=== PATIENT | male | born 1985 | race Caucasian/White ===

== ENCOUNTER 2018-04-17 05:32 | Inpatient (IN) | payer MEDICAID, OTHER ==
[~2018-04-17] VITALS: Ht 167.6 cm; Wt 74.8 kg
[2018-04-17] MEDS ORDERED: ASPIRIN 81MG TABLET PO ONE (06:45)
[2018-04-17 08:13] LABS: BASOPHILS % 0.3 % (0.0-2.0); EOSINOPHILS % 4.7 % (0.0-5.0); LYMPHOCYTES % 10.3 % (20.0-50.0); MEAN CORPUSCULAR HEMOGLOBIN 31.4 pg (28.0-32.0); MEAN CORPUSCULAR VOLUME 95.7 fL (80.0-94.0); MEAN PLATELET VOLUME 8.2 fl (7.4-10.4); MONOCYTES % 6.2 % (2.0-8.0); NEUTROPHILS % 78.5 % (40.0-76.0); PLATELET 190 x1000/uL (130-400); RED BLOOD CELL COUNT 1.94 mill/uL (4.7-6.1); RED CELL DISTRIBUTION WIDTH 15.7 % (11.6-14.6)
[2018-04-17] MEDS ORDERED: CALCIUM GLUCONATE 100MG/ML 10ML VIAL IV ONE (08:15)
[2018-04-17 08:21] LABS: HEMOGLOBIN. 6.1 g/dL (14.0-18.0)
[2018-04-17 08:22] LABS: HEMATOCRIT. 18.5 % (42.0-52.0)
[2018-04-17 08:27] LABS: CHLORIDE 99 mEq/L (98-107)
[2018-04-17] MEDS ORDERED: INSULIN REGULAR (HUMULIN R) 300UNITS/3ML IV ONE (08:30)
[2018-04-17] MEDS ORDERED: CALCIUM GLUCONATE 1000MG in DEXTROSE 5% WATER 50ML IV ONE (08:30)
[2018-04-17] MEDS ORDERED: DEXTROSE 50% WATER 50ML SYRINGE IV ONE (08:30)
[2018-04-17] MEDS ORDERED: SODIUM BICARBONATE 8.4% 1 MEQ/ML 50ML SYR IV ONE (08:30)
[2018-04-17] MEDS ORDERED: SODIUM POLYSTYRENE SULFONATE 15 G/60 ML BOT PO NR (10:15)
[2018-04-17] MEDS ORDERED: ONDANSETRON HCL 4MG/2ML INJ IV PRN (10:15)
[2018-04-17] MEDS ORDERED: ACETAMINOPHEN 325MG TABLET PO PRN (10:15)
[2018-04-17 11:34] LABS: HEPATITIS B SURFACE ANTIGEN NEGATIVE
[2018-04-17 12:04] LABS: HEPATITIS A AB IGM NEGATIVE (NEGATIVE)
[2018-04-17] MEDS ORDERED: NIFEDIPINE XL 60MG TAB PO NR ×2 (14:15→22:15)
[2018-04-17] MEDS ORDERED: HYDRALAZINE HCL 50MG TABLET PO NR (14:45)
[2018-04-17 15:14] LABS: CREATINE KINASE MB FRACTION 1.6 ng/mL (0.5-3.6); T4 FREE 1.05 ng/dL (0.76-1.46)
[2018-04-17] MEDS ORDERED: HYDRALAZINE 20MG/ML VIAL IV PRN (21:37)
[2018-04-17] MEDS ORDERED: PANTOPRAZOLE SODIUM 40 MG/VIAL IV NR (22:15)
[2018-04-17 23:40] VITALS: BP 135/97
[2018-04-17 23:41] VITALS: BP 135/97
[2018-04-17 23:52] LABS: CREATINE KINASE MB FRACTION 1.6 ng/mL (0.5-3.6)
[2018-04-18] VITALS (8 sets, daily range): BP systolic 123–151; BP diastolic 73–89
[2018-04-18 01:42] LABS: HEMATOCRIT 21.1 % (42.0-52.0); HEMOGLOBIN 7.2 g/dL (14.0-18.0)
[2018-04-18] MEDS ORDERED: CALCIUM GLUCONATE 100MG/ML 10ML VIAL IV ONE (02:15)
[2018-04-18] MEDS ORDERED: DEXTROSE 50% WATER 50ML SYRINGE IV SCH (02:15)
[2018-04-18] MEDS ORDERED: CALCIUM GLUCONATE 1,000 MG in DEXTROSE 5% WATER 50 ML IV SCH (02:30)
[2018-04-18] MEDS ORDERED: INSULIN REGULAR (HUMULIN R) 300UNITS/3ML IV SCH (02:30)
[2018-04-18] MEDS ORDERED: SODIUM BICARBONATE 8.4% MEQ/ML 50ML VIAL IV SCH (02:30)
[2018-04-18] MEDS ORDERED: INSULIN REGULAR (HUMULIN R) UD 100 UNITS/ML SYR IV SCH (02:30)
[2018-04-18] MEDS ORDERED: SODIUM BICARBONATE 8.4% 1 MEQ/ML 50ML SYR IV SCH (02:30)
[2018-04-18] MEDS: HYDRALAZINE HCL 50MG TABLET PO SCH ×3 (05:06→21:46)
[2018-04-18] MEDS: NIFEDIPINE XL 60MG TAB PO SCH ×2 (09:00→21:46)
[2018-04-18] MEDS ORDERED: PANTOPRAZOLE SODIUM 40 MG/VIAL IV SCH (09:00)
[2018-04-18 10:00] LABS: HEMATOCRIT. 28.7 % (42.0-52.0); HEMOGLOBIN. 9.8 g/dL (14.0-18.0); MEAN CORPUSCULAR HEMOGLOBIN 31.1 pg (28.0-32.0); MEAN CORPUSCULAR VOLUME 90.8 fL (80.0-94.0); MEAN PLATELET VOLUME 8.4 fl (7.4-10.4); PLATELET 205 x1000/uL (130-400); RED BLOOD CELL COUNT 3.16 mill/uL (4.7-6.1); RED CELL DISTRIBUTION WIDTH 15.4 % (11.6-14.6)
[2018-04-18 10:38] LABS: CREATINE KINASE MB FRACTION 1.5 ng/mL (0.5-3.6)
[2018-04-18] MEDS ORDERED: DEXTROSE 50% WATER 50ML SYRINGE IV NR (11:15)
[2018-04-18] MEDS ORDERED: DEXT 5%/0.45% NACL 1000ML 1,000 ML IV SCH (11:30)
[2018-04-18 11:50] LABS: PHOSPHORUS 5.2 mg/dL (2.5-4.9)
[2018-04-18 13:46] LABS: PLATELET ESTIMATE NORMAL
[2018-04-18] MEDS ORDERED: SIMETHICONE 40 MG/0.6 ML 30ML ONE (14:32)
[2018-04-18] MEDS ORDERED: MIDAZOLAM HCL 5 MG/5 ML VIAL ONE (14:32)
[2018-04-18] MEDS ORDERED: FENTANYL CITRATE/PF 50MCG/ML 2ML VIAL ONE (14:33)
[2018-04-18] MEDS ORDERED: MIDAZOLAM HCL 5 MG/5 ML VIAL IV PRN (14:35)
[2018-04-18] MEDS ORDERED: FENTANYL CITRATE/PF 50MCG/ML 2ML VIAL IV PRN (14:36)
[2018-04-18] MEDS ORDERED: SODIUM CHLORIDE 0.9% 10ML VIAL ONE (15:51)
[2018-04-18] MEDS: FAMOTIDINE 20MG TABLET PO SCH (21:45)
[2018-04-19] VITALS (7 sets, daily range): BP systolic 116–189; BP diastolic 72–116
[2018-04-19] MEDS: HYDRALAZINE HCL 50MG TABLET PO SCH ×3 (05:55→22:53)
[2018-04-19 07:40] LABS: BASOPHILS % 0.6 % (0.0-2.0); HEMATOCRIT. 26.3 % (42.0-52.0); HEMOGLOBIN. 8.9 g/dL (14.0-18.0); LYMPHOCYTES % 22.7 % (20.0-50.0); MEAN CORPUSCULAR HEMOGLOBIN 31.5 pg (28.0-32.0); MEAN CORPUSCULAR VOLUME 93.2 fL (80.0-94.0); MEAN PLATELET VOLUME 8.3 fl (7.4-10.4); MONOCYTES % 9.2 % (2.0-8.0); NEUTROPHILS % 57.5 % (40.0-76.0); PLATELET 191 x1000/uL (130-400); RED BLOOD CELL COUNT 2.83 mill/uL (4.7-6.1); RED CELL DISTRIBUTION WIDTH 15.3 % (11.6-14.6)
[2018-04-19] MEDS: CALCIUM ACETATE 667MG CAPSULE PO SCH ×3 (08:44→16:12)
[2018-04-19] MEDS: FOLIC ACID/VITAMIN B COMP W-C TABLET PO SCH (08:44)
[2018-04-19] MEDS: NIFEDIPINE XL 60MG TAB PO SCH ×2 (08:46→22:53)
[2018-04-19] MEDS: FAMOTIDINE 20MG TABLET PO SCH (22:53)
[2018-04-20] VITALS: BP 151/92
[2018-04-20 04:00] VITALS: BP 144/86
[2018-04-20] MEDS: HYDRALAZINE HCL 50MG TABLET PO SCH ×3 (05:29→21:22)
[2018-04-20 07:33] LABS: BASOPHILS % 0.8 % (0.0-2.0); EOSINOPHILS % 11.6 % (0.0-5.0); HEMATOCRIT. 25.5 % (42.0-52.0); HEMOGLOBIN. 8.7 g/dL (14.0-18.0); LYMPHOCYTES % 23.7 % (20.0-50.0); MEAN CORPUSCULAR HEMOGLOBIN 31.5 pg (28.0-32.0); MEAN CORPUSCULAR VOLUME 92.2 fL (80.0-94.0); MEAN PLATELET VOLUME 7.4 fl (7.4-10.4); MONOCYTES % 9.1 % (2.0-8.0); NEUTROPHILS % 54.8 % (40.0-76.0); PLATELET 210 x1000/uL (130-400); RED BLOOD CELL COUNT 2.76 mill/uL (4.7-6.1); RED CELL DISTRIBUTION WIDTH 15.3 % (11.6-14.6)
[2018-04-20] MEDS: NIFEDIPINE XL 60MG TAB PO SCH ×2 (08:27→21:19)
[2018-04-20] MEDS: CALCIUM ACETATE 667MG CAPSULE PO SCH ×3 (08:27→16:24)
[2018-04-20] MEDS: FOLIC ACID/VITAMIN B COMP W-C TABLET PO SCH (08:27)
[2018-04-20 08:29] VITALS: BP 122/76
[2018-04-20 09:41] LABS: TOTAL IRON BINDING CAPACITY 215 ug/dL (250-450)
[2018-04-20 12:00] VITALS: BP 122/75
[2018-04-20] MEDS: OMEPRAZOLE 20MG CAPSULE EXTENDED RELEASE PO SCH (13:18)
[2018-04-20 16:00] VITALS: BP 139/84
[2018-04-20 20:00] VITALS: BP 120/68
[2018-04-20] MEDS ORDERED: EPOETIN ALFA 10000UNITS/ML VIAL SUBCUT NR (21:00)
[2018-04-20] MEDS: FAMOTIDINE 20MG TABLET PO SCH (21:19)
[2018-04-21] VITALS: BP 100/67
[2018-04-21 04:00] VITALS: BP 122/74
[2018-04-21] MEDS: OMEPRAZOLE 20MG CAPSULE EXTENDED RELEASE PO SCH (06:11)
[2018-04-21] MEDS: HYDRALAZINE HCL 50MG TABLET PO SCH ×3 (06:11→21:09)
[2018-04-21] MEDS: FOLIC ACID/VITAMIN B COMP W-C TABLET PO SCH (09:44)
[2018-04-21] MEDS: CALCIUM ACETATE 667MG CAPSULE PO SCH ×3 (09:45→18:49)
[2018-04-21] MEDS: NIFEDIPINE XL 60MG TAB PO SCH ×2 (09:45→21:09)
[2018-04-21 11:54] VITALS: BP 114/73
[2018-04-21 16:00] VITALS: BP 120/81
[2018-04-21 20:00] VITALS: BP 131/71
[2018-04-21] MEDS: FAMOTIDINE 20MG TABLET PO SCH (21:09)
[2018-04-22] VITALS: BP 138/88
[2018-04-22 04:00] VITALS: BP 146/94
[2018-04-22] MEDS: HYDRALAZINE HCL 50MG TABLET PO SCH ×3 (05:34→17:00)
[2018-04-22 06:11] LABS: BASOPHILS % 0.8 % (0.0-2.0); EOSINOPHILS % 7.9 % (0.0-5.0); HEMATOCRIT. 25.4 % (42.0-52.0); HEMOGLOBIN. 8.6 g/dL (14.0-18.0); LYMPHOCYTES % 20.7 % (20.0-50.0); MEAN CORPUSCULAR VOLUME 91.9 fL (80.0-94.0); MEAN PLATELET VOLUME 6.9 fl (7.4-10.4); MONOCYTES % 7.6 % (2.0-8.0); PLATELET 172 x1000/uL (130-400); RED BLOOD CELL COUNT 2.76 mill/uL (4.7-6.1); RED CELL DISTRIBUTION WIDTH 15.3 % (11.6-14.6)
[2018-04-22] MEDS: CALCIUM ACETATE 667MG CAPSULE PO SCH ×3 (08:26→16:59)
[2018-04-22] MEDS: FOLIC ACID/VITAMIN B COMP W-C TABLET PO SCH (08:26)
[2018-04-22] MEDS: NIFEDIPINE XL 60MG TAB PO SCH (08:27)
[2018-04-22 12:00] VITALS: BP 136/80
[2018-04-22] MEDS ORDERED: DIPHENHYDRAMINE 50MG/ML VIAL IV PRN (12:00)
[2018-04-22 15:53] VITALS: BP 155/90
[2018-04-22 16:00] VITALS: BP 175/108
[2018-04-22] MEDS ORDERED: EPOETIN ALFA 10000UNITS/ML VIAL SUBCUT SCH (21:00)
== END 2018-04-22 19:10 | disposition home or self-care (01) | DRG 241 ==
LOC: ER 06:05 → 8WST 08:51 → EDBEDREQ 08:55 → EDBEDREQSVC 08:55 → EDBEDREQTM 21:07 → EDBEDREQSVC 21:07 → ENRESERV 22:42
PROVIDERS: ADMIT Internal Medicine; ATTEND Internal Medicine
PROC: 30233N1 Transfusion of Nonautologous Red Blood Cells into Peripheral Vein, Percutaneous Approach (ICD-10-PCS; 2018-04-17)
PROC: 0DB68ZX Excision of Stomach, Via Natural or Artificial Opening Endoscopic, Diagnostic (ICD-10-PCS; principal; 2018-04-18)
PROC: 5A1D70Z Performance of Urinary Filtration, Intermittent, Less than 6 Hours Per Day (ICD-10-PCS; 2018-04-18)
PROC: 5A1D70Z Performance of Urinary Filtration, Intermittent, Less than 6 Hours Per Day (ICD-10-PCS; 2018-04-19)
PROC: 5A1D70Z Performance of Urinary Filtration, Intermittent, Less than 6 Hours Per Day (ICD-10-PCS; 2018-04-22)
DX: K29.71 Gastritis, unspecified, with bleeding (principal); E87.2 Acidosis; I24.8 Other forms of acute ischemic heart disease; I12.0 Hypertensive chronic kidney disease with stage 5 chronic kidney disease or end stage renal disease; E44.1 Mild protein-calorie malnutrition; E83.39 Other disorders of phosphorus metabolism; E16.2 Hypoglycemia, unspecified; F17.210 Nicotine dependence, cigarettes, uncomplicated; J98.11 Atelectasis; K25.4 Chronic or unspecified gastric ulcer with hemorrhage; K26.4 Chronic or unspecified duodenal ulcer with hemorrhage; K29.81 Duodenitis with bleeding; D50.0 Iron deficiency anemia secondary to blood loss (chronic); E87.5 Hyperkalemia; N18.6 End stage renal disease; Z99.2 Dependence on renal dialysis; Z68.26 Body mass index [BMI] 26.0-26.9, adult
CPT/HCPCS: 36415; 71045; 80048; 80061; 82550; 82553; 82962; 83036; 83540; 83550; 83735; 83880; 84100; 84132; 84439; 84443; 84484; 85014; 85018; 85379; 86677; 86705; 86706; 86709; 86803; 86850; 86900; 86920; 87340; 88305; 88312; 88313; 93005; 93306; 96361; 96374; 96375; 99285; C1893; C9113; G0378; J0360; J0610; J0885; J1200; J1815; J2250; J2405; J3010; J3490; J7040; J7050; J7060; P9016

== ENCOUNTER 2018-05-03 14:28 | Inpatient (IN) | payer MEDICAID, OTHER ==
[~2018-05-03] VITALS: Ht 167.6 cm; Wt 79.4 kg
[2018-05-03 20:27] LABS: BASOPHILS % 1.1 % (0.0-2.0); EOSINOPHILS % 5.3 % (0.0-5.0); HEMATOCRIT. 21.5 % (42.0-52.0); HEMOGLOBIN. 7.2 g/dL (14.0-18.0); LYMPHOCYTES % 16.2 % (20.0-50.0); MEAN CORPUSCULAR HEMOGLOBIN 31.6 pg (28.0-32.0); MEAN PLATELET VOLUME 6.8 fl (7.4-10.4); MONOCYTES % 7.7 % (2.0-8.0); NEUTROPHILS % 69.7 % (40.0-76.0); PLATELET 159 x1000/uL (130-400); RED BLOOD CELL COUNT 2.27 mill/uL (4.7-6.1); RED CELL DISTRIBUTION WIDTH 17.2 % (11.6-14.6)
[2018-05-03 20:29] LABS: CHLORIDE 97 mEq/L (98-107)
[2018-05-03] MEDS ORDERED: ASPIRIN 325MG TABLET PO ONE (21:00)
[2018-05-04] VITALS (9 sets, daily range): BP systolic 106–181; BP diastolic 73–112
[2018-05-04] MEDS: FOLIC ACID/VITAMIN B COMP W-C TABLET PO SCH (08:35)
[2018-05-04] MEDS: CALCIUM ACETATE 667MG CAPSULE PO SCH ×3 (08:35→18:38)
[2018-05-04] MEDS ORDERED: PANTOPRAZOLE 40MG DR TABLET PO NR (11:00)
[2018-05-04] MEDS ORDERED: CALC667C PO (12:10)
[2018-05-04] MEDS ORDERED: HYDR-4135 PO (12:10)
[2018-05-04] MEDS ORDERED: FOLI0.8T23 PO (12:10)
[2018-05-04] MEDS ORDERED: FAMO20TA8 PO (12:10)
[2018-05-04] MEDS ORDERED: NIFE20CA PO (12:10)
[2018-05-04 15:46] LABS: BASOPHILS % 0.9 % (0.0-2.0); HEMATOCRIT. 21.4 % (42.0-52.0); HEMOGLOBIN. 7.1 g/dL (14.0-18.0); LYMPHOCYTES % 15.9 % (20.0-50.0); MEAN CORPUSCULAR HEMOGLOBIN 31.7 pg (28.0-32.0); MEAN CORPUSCULAR VOLUME 94.9 fL (80.0-94.0); MEAN PLATELET VOLUME 7.2 fl (7.4-10.4); NEUTROPHILS % 71.2 % (40.0-76.0); PLATELET 140 x1000/uL (130-400); RED BLOOD CELL COUNT 2.25 mill/uL (4.7-6.1); RED CELL DISTRIBUTION WIDTH 17.4 % (11.6-14.6)
[2018-05-04 15:52] LABS: CHLORIDE 99 mEq/L (98-107)
[2018-05-04 16:00] LABS: TOTAL IRON BINDING CAPACITY 215 ug/dL (250-450)
[2018-05-04] MEDS ORDERED: IPRATROPIUM/ALBUTEROL 0.5-3(2.5)MG/3ML NEB HHN NR (16:33)
[2018-05-04] MEDS ORDERED: ACETAMINOPHEN 325MG TABLET PO PRN (17:15)
[2018-05-04] MEDS: IPRATROPIUM/ALBUTEROL 0.5-3(2.5)MG/3ML NEB HHN SCH ×2 (17:21→20:55)
[2018-05-04] MEDS ORDERED: EPOETIN ALFA 10000UNITS/ML VIAL SUBCUT SCH (21:00)
[2018-05-05] VITALS (9 sets, daily range): BP systolic 143–188; BP diastolic 92–122
[2018-05-05 00:48] LABS: HEMATOCRIT 25.2 % (42.0-52.0); HEMOGLOBIN 8.4 g/dL (14.0-18.0); MEAN CORPUSCULAR HEMOGLOBIN 31.3 pg (28.0-32.0); MEAN CORPUSCULAR VOLUME 93.5 fL (80.0-94.0); PLATELET 138 x1000/uL (130-400); RED BLOOD CELL COUNT 2.69 mill/uL (4.7-6.1); RED CELL DISTRIBUTION WIDTH 16.1 % (11.6-14.6)
[2018-05-05] MEDS: IPRATROPIUM/ALBUTEROL 0.5-3(2.5)MG/3ML NEB HHN SCH ×6 (03:33→20:55)
[2018-05-05] MEDS ORDERED: MEDICATION NOT ON FORMULARY EA (Hydralazine Hcl 50 MG) PO SCH (05:30)
[2018-05-05] MEDS ORDERED: HYDRALAZINE HCL 50MG TABLET PO SCH (06:00)
[2018-05-05 06:41] LABS: BASOPHILS % 0.8 % (0.0-2.0); EOSINOPHILS % 4.3 % (0.0-5.0); HEMATOCRIT. 22.8 % (42.0-52.0); HEMOGLOBIN. 7.8 g/dL (14.0-18.0); LYMPHOCYTES % 12.5 % (20.0-50.0); MEAN CORPUSCULAR HEMOGLOBIN 31.3 pg (28.0-32.0); MEAN PLATELET VOLUME 6.9 fl (7.4-10.4); MONOCYTES % 7.9 % (2.0-8.0); NEUTROPHILS % 74.5 % (40.0-76.0); PLATELET 113 x1000/uL (130-400); RED BLOOD CELL COUNT 2.48 mill/uL (4.7-6.1); RED CELL DISTRIBUTION WIDTH 16.8 % (11.6-14.6)
[2018-05-05] MEDS: PANTOPRAZOLE 40MG DR TABLET PO SCH (06:42)
[2018-05-05] MEDS: CALCIUM ACETATE 667MG CAPSULE PO SCH ×3 (08:45→17:36)
[2018-05-05] MEDS: FOLIC ACID/VITAMIN B COMP W-C TABLET PO SCH (08:46)
[2018-05-05] MEDS: NIFEDIPINE XL 60MG TAB PO SCH (09:35)
[2018-05-05] MEDS: HYDRALAZINE HCL 100MG TABLET PO SCH ×2 (13:21→21:47)
[2018-05-06 00:18] VITALS: BP 153/100
[2018-05-06] MEDS: IPRATROPIUM/ALBUTEROL 0.5-3(2.5)MG/3ML NEB HHN SCH ×2 (00:56→05:14)
[2018-05-06 01:18] VITALS: BP 147/105
[2018-05-06 02:18] VITALS: BP 154/96
[2018-05-06 04:09] VITALS: BP 158/105
[2018-05-06 04:48] LABS: HEMATOCRIT. 25.5 % (42.0-52.0); HEMOGLOBIN. 8.7 g/dL (14.0-18.0); MEAN PLATELET VOLUME 6.9 fl (7.4-10.4); PLATELET 101 x1000/uL (130-400); RED BLOOD CELL COUNT 2.81 mill/uL (4.7-6.1)
[2018-05-06] MEDS: HYDRALAZINE HCL 100MG TABLET PO SCH (06:46)
[2018-05-06] MEDS: PANTOPRAZOLE 40MG DR TABLET PO SCH (06:46)
[2018-05-06 07:56] LABS: PLATELET ESTIMATE DECREASED
[2018-05-06] MEDS: FOLIC ACID/VITAMIN B COMP W-C TABLET PO SCH (08:28)
[2018-05-06] MEDS: CALCIUM ACETATE 667MG CAPSULE PO SCH (08:28)
[2018-05-06] MEDS: NIFEDIPINE XL 60MG TAB PO SCH (08:29)
[2018-05-06] MEDS ORDERED: DOXAZOSIN MESYLATE 2MG TABLET PO SCH ×2 (08:45→21:00)
[2018-05-06 09:16] VITALS: BP 166/108
[2018-05-06 09:28] VITALS: BP 166/108
== END 2018-05-06 10:50 | disposition home or self-care (01) | DRG 470 ==
LOC: ER 14:28 → 6WST 21:59 → EDBEDREQTM 22:10 → EDBEDREQ 22:10 → ENRESERV 05-04 04:42
PROVIDERS: ADMIT Internal Medicine Geriatric Medicine; ATTEND Internal Medicine Geriatric Medicine
PROC: 30233N1 Transfusion of Nonautologous Red Blood Cells into Peripheral Vein, Percutaneous Approach (ICD-10-PCS; principal; 2018-05-04)
PROC: 5A1D70Z Performance of Urinary Filtration, Intermittent, Less than 6 Hours Per Day (ICD-10-PCS; 2018-05-04)
PROC: 5A1D70Z Performance of Urinary Filtration, Intermittent, Less than 6 Hours Per Day (ICD-10-PCS; 2018-05-06)
DX: I12.0 Hypertensive chronic kidney disease with stage 5 chronic kidney disease or end stage renal disease (principal); N18.6 End stage renal disease; D64.9 Anemia, unspecified; F17.210 Nicotine dependence, cigarettes, uncomplicated; Z99.2 Dependence on renal dialysis
CPT/HCPCS: 36415; 71045; 80048; 83540; 83550; 83880; 84484; 85027; 86850; 86900; 86920; 93005; 94640; 99285; J0885; J7040; J7620; P9016

== ENCOUNTER 2018-05-21 23:57 | Inpatient (IN) | payer MEDICAID, OTHER ==
[~2018-05-21] VITALS: Ht 167.6 cm; Wt 88.5 kg
[~2018-05-21 23:57] MED LIST: CALC667C PO; FAMO20TA8 PO; FOLI0.8T23 PO; HYDR-4135 PO; NIFE20CA PO
[2018-05-22] MEDS ORDERED: LABETALOL HCL 20MG/4ML CARPUJECT IV ONE (04:45)
[2018-05-22] MEDS ORDERED: LABETALOL 5MG/ML SYR 20 MG/4 ML SYRINGE IV SCH (05:00)
[2018-05-22 05:11] LABS: CHLORIDE 96 mEq/L (98-107)
[2018-05-22 05:18] LABS: BASOPHILS % 0.9 % (0.0-2.0); EOSINOPHILS % 3.4 % (0.0-5.0); HEMATOCRIT. 26.8 % (42.0-52.0); HEMOGLOBIN. 8.7 g/dL (14.0-18.0); LYMPHOCYTES % 16.6 % (20.0-50.0); MEAN CORPUSCULAR HEMOGLOBIN 32.3 pg (28.0-32.0); MEAN CORPUSCULAR VOLUME 99.6 fL (80.0-94.0); MEAN PLATELET VOLUME 8.5 fl (7.4-10.4); MONOCYTES % 8.9 % (2.0-8.0); NEUTROPHILS % 70.2 % (40.0-76.0); PLATELET 187 x1000/uL (130-400); RED BLOOD CELL COUNT 2.69 mill/uL (4.7-6.1); RED CELL DISTRIBUTION WIDTH 21.8 % (11.6-14.6)
[2018-05-22] MEDS ORDERED: HYDRALAZINE 20MG/ML VIAL IV ONE (05:30)
[2018-05-22] MEDS ORDERED: GUAIFENESIN-DM 200MG-20MG/10ML UDC PO PRN (10:00)
[2018-05-22] MEDS ORDERED: ACETAMINOPHEN 325MG TABLET PO PRN (10:00)
[2018-05-22] MEDS ORDERED: CLONIDINE 0.1MG TABLET PO PRN (10:00)
[2018-05-22] MEDS ORDERED: ONDANSETRON HCL 4MG/2ML INJ IV PRN (10:00)
[2018-05-22] MEDS: IPRATROPIUM/ALBUTEROL 0.5-3(2.5)MG/3ML NEB HHN PRN (10:52)
[2018-05-22] MEDS ORDERED: FUROSEMIDE 40MG/4ML VIAL IVP ONE (11:30)
[2018-05-22] MEDS: LOSARTAN POTASSIUM 100 MG TABLET PO SCH (11:59)
[2018-05-22 21:30] VITALS: BP 156/81
[2018-05-22 21:45] VITALS: BP 156/81
[2018-05-22] MEDS: AMLODIPINE 5MG TABLET PO SCH (22:00)
[2018-05-23] MEDS: IPRATROPIUM/ALBUTEROL 0.5-3(2.5)MG/3ML NEB HHN PRN (01:42)
[2018-05-23 04:00] VITALS: BP_SYST 0
[2018-05-23 08:00] VITALS: BP 154/104
[2018-05-23] MEDS: LOSARTAN POTASSIUM 100 MG TABLET PO SCH (08:49)
[2018-05-23] MEDS: AMLODIPINE 5MG TABLET PO SCH (08:59)
[2018-05-23 11:14] LABS: BASOPHILS % 1.4 % (0.0-2.0); EOSINOPHILS % 5.1 % (0.0-5.0); LYMPHOCYTES % 16.9 % (20.0-50.0); MEAN CORPUSCULAR HEMOGLOBIN 32.5 pg (28.0-32.0); MEAN CORPUSCULAR VOLUME 100.3 fL (80.0-94.0); MEAN PLATELET VOLUME 8.4 fl (7.4-10.4); MONOCYTES % 7.3 % (2.0-8.0); NEUTROPHILS % 69.3 % (40.0-76.0); PLATELET 201 x1000/uL (130-400); RED BLOOD CELL COUNT 3.09 mill/uL (4.7-6.1); RED CELL DISTRIBUTION WIDTH 21.4 % (11.6-14.6)
[2018-05-23] MEDS ORDERED: HYDRALAZINE HCL 50MG TABLET PO SCH (11:30)
[2018-05-23 11:44] VITALS: BP 143/101
[2018-05-23 12:00] VITALS: BP 140/100
[2018-05-23 12:15] VITALS: BP 140/100
[2018-05-23] MEDS ORDERED: EPOETIN ALFA 10000UNITS/ML VIAL SUBCUT SCH (21:00)
== END 2018-05-23 13:35 | disposition home or self-care (01) | DRG 133 ==
LOC: ER 23:57 → EDBEDREQTM 05-22 04:55 → 7WST 05-22 04:55 → EDBEDREQ 05-22 04:55 → CANRESERV 05-22 17:43 → ENRESERV 05-22 17:43
PROVIDERS: ADMIT Internal Medicine; ATTEND Internal Medicine
PROC: 5A1D70Z Performance of Urinary Filtration, Intermittent, Less than 6 Hours Per Day (ICD-10-PCS; principal; 2018-05-22)
DX: J96.00 Acute respiratory failure, unspecified whether with hypoxia or hypercapnia (principal); I12.0 Hypertensive chronic kidney disease with stage 5 chronic kidney disease or end stage renal disease; E87.8 Other disorders of electrolyte and fluid balance, not elsewhere classified; N18.6 End stage renal disease; I24.8 Other forms of acute ischemic heart disease; D63.8 Anemia in other chronic diseases classified elsewhere; Z82.49 Family history of ischemic heart disease and other diseases of the circulatory system; Z99.2 Dependence on renal dialysis
CPT/HCPCS: 36415; 71045; 80048; 84484; 93005; 93970; 94640; 96374; 96375; 99284; 99291; J0360; J1940; J3490; J7620